=== PATIENT | male | born 1960 | race Caucasian/White ===

== ENCOUNTER 2021-10-08 17:03 | Emergency (ER) | payer BC ==
[~2021-10-08] VITALS: Ht 172.7 cm; Wt 81.8 kg
[~2021-10-08 17:03] MED LIST: CEPHALEXIN500 M1 PO; CYMBALTA 60MG60 MG PO; MAG-CAPS85 MG PO; MULTIPLE VITAMI1 CAP PO; PREDNISONE20 MG PO; PRIL40 PO; ULTRAM 50MG TAB50 MG PO; VIT B COMPLEX
[2021-10-08 17:26] VITALS: TEMP 97.7
[2021-10-08] MEDS ORDERED: CEPHALEXIN500 M1 PO (18:25)
[2021-10-08 18:46] VITALS: BP 117/89; PULSE 72
== END 2021-10-08 18:49 | disposition home or self-care (01) ==
LOC: COL.ER 17:03
DX: S62.635A Displaced fracture of distal phalanx of left ring finger, initial encounter for closed fracture (principal); S62.633A Displaced fracture of distal phalanx of left middle finger, initial encounter for closed fracture; Z28.310 Unvaccinated for COVID-19; Z87.891 Personal history of nicotine dependence; W28.XXXA Contact with powered lawn mower, initial encounter

== ENCOUNTER 2021-10-10 00:30 | Emergency (ER) | payer BC ==
[~2021-10-10] VITALS: Ht 172.7 cm; Wt 81.8 kg
[2021-10-10 00:34] VITALS: BP 139/78; TEMP 98
[2021-10-10 00:55] VITALS: PULSE 88
== END 2021-10-10 00:56 | disposition home or self-care (01) ==
LOC: COL.ER 00:30
DX: S62.603A Fracture of unspecified phalanx of left middle finger, initial encounter for closed fracture (principal); S62.605A Fracture of unspecified phalanx of left ring finger, initial encounter for closed fracture; Z28.310 Unvaccinated for COVID-19; X58.XXXA Exposure to other specified factors, initial encounter